=== PATIENT | male | born 1985 | race Caucasian/White ===

== ENCOUNTER 2017-05-31 16:08 | Emergency (ER) | payer SELFPAY ==
[~2017-05-31] VITALS: Ht 182.9 cm; Wt 80.0 kg
[2017-05-31 16:14] VITALS: Ht 182.9 cm; Wt 80.0 kg
[2017-05-31] MEDS ORDERED: HYDROCODONE/APAP (5/325) TAB PO ONE (17:30)
[2017-05-31] MEDS ORDERED: NAPR-260 PO (17:57)
[2017-05-31] MEDS ORDERED: CYCL-319 PO (17:57)
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
== END 2017-05-31 18:47 | disposition home or self-care (01) ==
LOC: FTE 16:08
DX: S39.92XA Unspecified injury of lower back, initial encounter (principal); S49.91XA Unspecified injury of right shoulder and upper arm, initial encounter; F17.210 Nicotine dependence, cigarettes, uncomplicated; V49.50XA Passenger injured in collision with unspecified motor vehicles in traffic accident, initial encounter
CPT/HCPCS: 99283